=== PATIENT | female | born 1995 | race African-American/Black ===

== ENCOUNTER 2019-08-03 11:00 | Emergency (ER) | payer OTHER, MEDICAID ==
[~2019-08-03] VITALS: Ht 165.1 cm; Wt 63.5 kg
--- NOTE | 2019-08-03 11:43 | NUR ---
PT IS IN ROOM #1B. DR SALCEDO EVALUATED THE PT.
--- NOTE | 2019-08-03 11:58 | NUR ---
Patient discharged to home in stable conditon. Written and verbal after care instructions given. Patient verbalizes understanding of instructions.
== END 2019-08-03 11:59 | disposition home or self-care (01) ==
LOC: ER 11:05
DX: B34.9 Viral infection, unspecified (principal); R07.9 Chest pain, unspecified; F17.290 Nicotine dependence, other tobacco product, uncomplicated
CPT/HCPCS: 71045; 93005; A4663